=== PATIENT | male | born 1965 | race Hispanic/Latino ===

== ENCOUNTER 2017-10-31 02:09 | Inpatient (IN) | payer MEDICAID, OTHER ==
--- NOTE | 2017-10-31 02:25 | ED PDOC ---
Psych Transfer Clearance - Clearance Statement Clearance Statement: Reviewed vital signs, lab results and transfer papers. Patient clinically stable for psychiatric admission.
[2017-10-31] MEDS ORDERED: Alum-Mag Hydrox-Simethicone Susp (30 mL) PO PRN (02:48)
[2017-10-31] MEDS ORDERED: DiphenhydrAMINE 50 mg/ml Inj IM PRN (02:48)
[2017-10-31] MEDS ORDERED: Magnesium Hydroxide Susp 30 ml UD PO PRN (02:48)
[2017-10-31 02:55] VITALS: RESP 18; O2SAT 100
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
--- NOTE | 2017-10-31 18:56 | CP.PCM.CON ---
History of Present Illness - History of Present Illness History of Present Illness: cc: medical clearance for psych admission HPI: 52 yo Male no PMH of medical conditions here for psychiatric condition. denies cp, sob, fever, chills, all other ros reviewed and are negative. PSurgicalH: none PMH: none FH: none reviewed Meds: none Allergies: erythromycin Past Social history: lives w with whom he has a restraining order from no tob, no drugs Review of Systems - Review of Systems All systems: reviewed and no additional remarkable complaints except Review of Systems: psychiatric conditions Past Patient History - Past Medical History & Family History Past Medical History?: No - CARDIAC Hx Cardiac Disorders: No - PULMONARY Hx Respiratory Disorders: No - NEUROLOGICAL Hx Neurological Disorder: No - HEENT Hx HEENT Problems: No Other/Comment: wears glasses - RENAL Hx Chronic Kidney Disease: No - ENDOCRINE/METABOLIC Hx Endocrine Disorders: No - HEMATOLOGICAL/ONCOLOGICAL Hx Blood Disorders: No - INTEGUMENTARY Hx Dermatological Problems: No - MUSCULOSKELETAL/RHEUMATOLOGICAL Hx Musculoskeletal Disorders: No - GASTROINTESTINAL Hx Gastrointestinal Disorders: No - GENITOURINARY/GYNECOLOGICAL Hx Genitourinary Disorders: No - PSYCHIATRIC Hx Depression: Yes Hx Substance Use: No - SURGICAL HISTORY Hx Surgeries: No - ANESTHESIA Hx Anesthesia: No Meds Allergies/Adverse Reactions: Allergies Allergy/AdvReac Type Severity Reaction Status Date / Time FISH Allergy SWELLING Verified 10/31/17 04:20 erythromycin base AdvReac FATIGUE Verified 10/31/17 02:18 eggs Allergy DIARRHEA Uncoded 10/31/17 04:19 mayonaisse Allergy DIARRHEA Uncoded 10/31/17 04:19 - Medications Medications: Current Medications Acetaminophen (Tylenol 325mg Tab) 650 mg PO Q4 PRN PRN Reason: Pain, moderate (4-7) Al Hydrox/Mg Hydrox/Simethicone (Maalox Plus 30 Ml) 30 ml PO Q4 PRN PRN Reason: Dyspepsia Diphenhydramine HCl (Benadryl) 50 mg IM Q6 PRN PRN Reason: Extrapyramidal S/S Unable PO Diphenhydramine HCl (Benadryl) 50 mg PO HS PRN PRN Reason: Sleep Haloperidol (Haldol) 5 mg PO Q4 PRN PRN Reason: Agitation Haloperidol Lactate (Haldol) 5 mg IM Q4 PRN PRN Reason: Agitation, Unable to Take PO Lorazepam (Ativan) 2 mg IM Q4 PRN PRN Reason: Anxiety/Agitation,Unable PO Lorazepam (Ativan) 1 mg PO Q6 PRN PRN Reason: Anxiety/Agitation Magnesium Hydroxide (Milk Of Magnesia) 30 ml PO HS PRN PRN Reason: Constipation Sertraline HCl (Zoloft) 25 mg PO DAILY ADAM Last Admin: 10/31/17 15:00 Dose: 25 mg Physical Exam - Constitutional Appears: Well, Non-toxic, No Acute Distress - Head Exam Head Exam: ATRAUMATIC - Eye Exam Eye Exam: EOMI, Normal appearance - ENT Exam ENT Exam: Mucous Membranes Dry - Neck Exam Neck exam: Positive for: Normal Inspection - Respiratory Exam Respiratory Exam: Clear to Auscultation Bilateral, NORMAL BREATHING PATTERN. absent: Accessory Muscle Use, Rhonchi, Wheezes - Cardiovascular Exam Cardiovascular Exam: REGULAR RHYTHM, +S1, +S2 - GI/Abdominal Exam GI & Abdominal Exam: Normal Bowel Sounds, Soft. absent: Tenderness - Extremities Exam Extremities exam: Positive for: normal inspection - Neurological Exam Neurological exam: Alert, CN II-XII Intact, Oriented x3 - Psychiatric Exam Psychiatric exam: Depressed Results - Vital Signs Recent Vital Signs: Last Vital Signs Temp 97.7 F 10/31/17 16:38 Pulse 96 H 10/31/17 16:38 Resp 18 10/31/17 16:38 BP 129/84 10/31/17 16:38 Pulse Ox 100 10/31/17 02:54 Assessment & Plan - Assessment and Plan (Free Text) Assessment: Patient has no medical conditions. Continue care per psych. Call Medicine as needed.
--- NOTE | 2017-11-01 10:05 | PCM.PYCHPN ---
Psychiatric Progress Note - Psychiatric Progress Note Patient seen today, length of contact: pt seen and evaluated Patient Chief Complaint: pt has been feeling less depressed and responding better to zoloft and denies suicidal ideation .pt still remains upset and angry about his situation with the and hoping that will drop the case . Medication Change: No Medical Record Reviewed: Yes Mental Status Examination - Cognitive Function Orientation: Person, Place, Situation, Time Attention: Poor Concentration: Poor Association: WNL Fund of Knowledge: WNL - Mood Mood: Depressed, Anxious - Affect Affect: Constricted - Formal Thought Process Formal Thought Process: No Impairment Goal/Treatment Plan - Goal/Treatment Plan Progress Toward Problem(s) and Goals/Treatment Plan: Pt has agreed to start zoloft 25 mg daily and will titrate the meds to stabilize the pt and engage pt in therapy and groups. Hospitalist for medical follow up geriatric social work professor to discuss with him the issues regarding his placement and aftercare.
[2017-11-01 16:54] VITALS: TEMP 97.7
[2017-11-02 09:28] VITALS: BP 113/72; PULSE 84
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
== END 2017-11-02 14:56 | disposition left against medical advice (07) | DRG 426 ==
LOC: H.ER 02:09 → H.PSYCH 02:25
PROVIDERS: ADMIT Psychiatry & Neurology Psychiatry; ATTEND Psychiatry & Neurology Psychiatry
DX: F32.9 Major depressive disorder, single episode, unspecified (principal); F43.21 Adjustment disorder with depressed mood